=== PATIENT | female | born 1945 | race American Indian/Alaskan Native ===

== ENCOUNTER 2017-06-29 12:22 | Outpatient (CLI) | payer MEDICARE ==
--- NOTE | 2017-07-02 08:37 | Mammography Report ---
BILATERAL DIGITAL SCREENING MAMMOGRAM WITH CAD:06/29/17 CLINICAL: Baseline screening. FINDINGS: The breasts are heterogeneously dense, which may obscure small masses. Bilateral asymmetries require additional imaging.No architectural distortion or suspicious calcifications. IMPRESSION: Bilateral asymmetries requiring further workup. BI-RADS CATEGORY: 0 -- Needs Additional Imaging RECOMMENDATION: Recall for bilateral lateralmedial and spot magnification views and bilateral breast ultrasound if needed. ACR BI-RADS MAMMOGRAPHIC CODES: 0 = Needs additional imaging evaluation; 1 = Negative; 2 = Benign; 3 = Probably benign; 4 = Suspicious; 5 = Malignant; 6 = Known biopsy-proven malignancy COMMENT: 1. Dense breast tissue, i.e., adenosis, fibrocystic changes, etc., may obscure an underlying neoplasm. 2. Approximately 10% of cancers are not detected with mammography. 3. A negative mammography report should not delay biopsy if a clinically suspicious mass is present.
== END 2017-06-29 12:23 | disposition home or self-care (01) ==
LOC: SPVWC 12:22
PROVIDERS: ATTEND Hospitalist
DX: Z12.31 Encounter for screening mammogram for malignant neoplasm of breast (principal)
CPT/HCPCS: 77067; G0202

== ENCOUNTER 2018-04-28 06:50 | Inpatient (IN) | payer MEDICARE ==
--- NOTE | 2018-04-28 07:51 | XRay Report ---
FINAL REPORT EXAM: XR CHEST 1V AP HISTORY: Dyspnea TECHNIQUE: AP portable view(s) of the chest obtained. PRIORS: None. FINDINGS: No mediastinal shift. Cardiomegaly. Bilateral pleural effusions, bibasilar interstitial prominence and ill-defined right greater than left basilar opacities. No pneumothorax or acute skeletal finding. IMPRESSION: Pulmonary interstitial edema with right greater than left pleural effusions is most likely due to heart failure. Lower lung airspace disease can go undetected in this setting. PA and lateral chest radiographic follow-up is recommended.
[2018-04-28 08:15] LABS: Basophils % (Auto) 0.5 % (0.0-1.8); Hematocrit 25.6 % (30.3-42.9); Hemoglobin 8.2 gm/dl (10.1-14.3); Lymphocytes # (Auto) 1.6 K/mm3 (1.2-5.4); Lymphocytes % (Auto) 33.1 % (13.4-35.0); Mean Corpuscular HGB Conc 32 % (30-34); Mean Corpuscular Hemoglobin 28 pg (28-32); Mean Corpuscular Volume 87 fl (79-97); Monocytes # (Auto) 0.3 K/mm3 (0.0-0.8); Monocytes % (Auto) 6.6 % (0.0-7.3); Platelet Count 326 K/mm3 (140-440); Red Blood Count 2.95 M/mm3 (3.65-5.03); Red Cell Distribution Width 19.2 % (13.2-15.2)
[2018-04-28 08:23] LABS: INR 1.07 (0.87-1.13)
[2018-04-28 08:24] LABS: Partial Thromboplastin Time 27.1 Sec. (24.2-36.6)
[2018-04-28 08:32] LABS: Creatine Kinase MB 3.3 ng/mL (0.0-4.0)
[2018-04-28 08:35] LABS: BUN/Creatinine Ratio 16; Blood Urea Nitrogen 16 mg/dL (7-17); Calcium 8.8 mg/dL (8.4-10.2); Hemolysis Index 4
[2018-04-28 08:36] LABS: Alanine Aminotransferase 8 units/L (7-56); Albumin 3.6 g/dL (3.9-5)
[2018-04-28 08:58] LABS: Bilirubin,Direct < 0.2 mg/dL (0-0.2)
[2018-04-28] MEDS ORDERED: ASPIRIN PO ONE (09:11)
[2018-04-28] MEDS ORDERED: LASIX IV ONE (09:13)
--- NOTE | 2018-04-28 09:21 | Emergency Department Report ---
ED General Adult HPI - General Chief complaint: Extremity Injury, Lower Stated complaint: ROLA Time Seen by Provider: 04/28/18 07:24 Source: patient, EMS Mode of arrival: Stretcher Limitations: No Limitations - History of Present Illness Initial comments: Patient is a 72-year-old female from [facility] with no prior history of congestive heart failure. She visited her primary care physician once 2 weeks ago and had blood work drawn. She went there for swelling in her feet. She was given Lasix. However her swelling was unrelieved. This morning she had severe shortness of breath and EMS was notified. I do not have EMS records were direct report. However, I am told her pulse oximetry was in the 70s upon their arrival. She was placed on nasal cannula. At time of my encounter her pulse oximetry was covering at 90 or below on 2 L. Her FIO2 was increased by me. She was not in respiratory distress. She denied chest or abdominal pain per the questioning of family members. She does not speak Nepali at all. Family member does tell me that she had swelling in her legs which is largely not improved by the oral Lasix. She developed swelling of her face and experienced some swelling of her abdomen. She had no complaint of fever or chills. There has not been any productive cough or hemoptysis. She is not complaining of leg pain. I am told the primary care physician and sent blood work. The family is not aware of results. -: week(s) Consistency: constant (shortness of breath has become more constant) Improves with: none Worsens with: other (would obviously worsen with exertion) Associated Symptoms: denies other symptoms Treatments Prior to Arrival: other (Lasix per PMD) - Related Data Home Medications Medication Instructions Recorded Confirmed Last Taken Diclofenac [Jaden Wiley] 75 mg PO BID 04/28/18 04/28/18 Unknown Fluconazole [Diflucan TAB] 100 mg PO DAILY 04/28/18 04/28/18 Unknown Furosemide [Lasix TAB] 20 mg PO DAILY 04/28/18 04/28/18 Unknown Linaclotide [Linzess] 145 mcg PO DAILY 04/28/18 04/28/18 Unknown Lisinopril [Zestril TAB] 40 mg PO DAILY 04/28/18 04/28/18 Unknown Potassium Chloride 10 meq PO DAILY 04/28/18 04/28/18 Unknown Sitagliptin Phosphate [Januvia] 50 mg PO DAILY 04/28/18 04/28/18 Unknown amLODIPine [Norvasc] 10 mg PO DAILY 04/28/18 04/28/18 Unknown metFORMIN [Glucophage] 1,000 mg PO BID 04/28/18 04/28/18 Unknown Allergies Allergy/AdvReac Type Severity Reaction Status Date / Time No Known Allergies Allergy Unverified 04/28/18 09:19 ED Review of Systems ROS: Stated complaint: ROLA Other details as noted in HPI Constitutional: denies: chills, fever Eyes: denies: eye pain, eye discharge, vision change ENT: denies: ear pain, throat pain Respiratory: shortness of breath. denies: cough, wheezing Cardiovascular: edema. denies: chest pain, palpitations Endocrine: no symptoms reported Gastrointestinal: denies: abdominal pain, nausea, diarrhea Genitourinary: denies: urgency, dysuria, discharge Musculoskeletal: denies: back pain, joint swelling, arthralgia Skin: denies: rash, lesions Neurological: denies: headache, weakness, paresthesias Psychiatric: denies: anxiety, depression Hematological/Lymphatic: denies: easy bleeding, easy bruising ED Past Medical Hx - Past Medical History Previous Medical History?: Yes Hx Hypertension: Yes Hx Diabetes: Yes - Surgical History Past Surgical History?: No - Social History Smoking Status: Never Smoker Substance Use Type: None - Medications Home Medications: Home Medications Medication Instructions Recorded Confirmed Last Taken Type Marc Wiley [Jaden Wiley] 75 mg PO BID 04/28/18 04/28/18 Unknown History Fluconazole [Diflucan TAB] 100 mg PO DAILY 04/28/18 04/28/18 Unknown History Furosemide [Lasix TAB] 20 mg PO DAILY 04/28/18 04/28/18 Unknown History Linaclotide [Linzess] 145 mcg PO DAILY 04/28/18 04/28/18 Unknown History Lisinopril [Zestril TAB] 40 mg PO DAILY 04/28/18 04/28/18 Unknown History Potassium Chloride 10 meq PO DAILY 04/28/18 04/28/18 Unknown History Sitagliptin Phosphate [Januvia] 50 mg PO DAILY 04/28/18 04/28/18 Unknown History amLODIPine [Norvasc] 10 mg PO DAILY 08/12/18 08/12/18 Unknown History metFORMIN [Glucophage] 1,000 mg PO BID 04/28/18 04/28/18 Unknown History ED Physical Exam - General Limitations: Language Barrier General appearance: alert, in no apparent distress - Head Head exam: Present: atraumatic, normocephalic - Eye Eye exam: Present: normal appearance. Absent: scleral icterus - ENT ENT exam: Present: mucous membranes moist, other (periorbital edema) - Neck Neck exam: Present: normal inspection. Absent: tenderness, meningismus - Respiratory Respiratory exam: Present: rales (some scattered rales), other (distant breath sounds at the base). Absent: respiratory distress - Cardiovascular Cardiovascular Exam: Present: regular rate, normal rhythm. Absent: systolic murmur, diastolic murmur, rubs, gallop - GI/Abdominal GI/Abdominal exam: Present: soft, normal bowel sounds, other (I do not appreciate seven ascites). Absent: distended, tenderness, guarding, rebound, rigid - Extremities Exam Extremities exam: Present: other (bilateral leg edema) - Back Exam Back exam: Present: normal inspection. Absent: CVA tenderness (R), CVA tenderness (L) - Neurological Exam Neurological exam: Present: alert, oriented X3, CN II-XII intact. Absent: motor sensory deficit - Psychiatric Psychiatric exam: Present: normal affect, normal mood - Skin Skin exam: Present: warm, dry, intact, normal color. Absent: rash ED Course Vital Signs 04/28/18 07:00 Pulse Rate 106 H Respiratory 22 Rate Blood Pressure 121/61 O2 Sat by Pulse 70 L Oximetry - Reevaluation(s) Reevaluation #1: Patient remained clinically stable. She was given Lasix. She will be admitted by Dr. Buck to the hospitalist service for further care and evaluation of her new onset CHF. 04/28/18 09:35 Reevaluation #2: A d-dimer is pending. 04/28/18 09:39 ED Medical Decision Making - Lab Data Result diagrams: 04/28/18 07:48 04/28/18 07:48 - EKG Data -: EKG Interpreted by Me EKG shows normal: sinus rhythm, axis, intervals, QRS complexes, ST-T waves - EKG Data Interpretation: nonspecific ST-T wave raiza - Radiology Data Radiology results: report reviewed interpreted by me: Moderately large bilateral pleural effusions with CHF. Critical care attestation.: If time is entered above; I have spent that time in minutes in the direct care of this critically ill patient, excluding procedure time. 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
[2018-04-28] MEDS ORDERED: ZOFRAN IV PRN (10:00)
[2018-04-28] MEDS ORDERED: SODIUM CHLORIDE FLUSH SYRINGE 10 ML IV PRN (10:00)
[2018-04-28] MEDS ORDERED: PROVENTIL IH PRN (10:00)
[2018-04-28] MEDS ORDERED: D50W (25GM) Syringe IV PRN (10:00)
[2018-04-28] MEDS ORDERED: TYLENOL PO PRN (10:00)
[2018-04-28] MEDS ORDERED: NARCAN 0.4 MG/1 ML IV PRN (10:00)
[2018-04-28] MEDS ORDERED: LOVENOX SUB-Q SCH (10:00)
[2018-04-28] MEDS ORDERED: LASIX ONE (10:53)
[2018-04-28] MEDS ORDERED: LOVENOX SUB-Q ONE (10:53)
[2018-04-28] MEDS ORDERED: ZESTRIL ONE (10:54)
[2018-04-28] MEDS ORDERED: COREG ONE (10:54)
[2018-04-28] MEDS ORDERED: ASPIRIN ONE (10:54)
[2018-04-28] MEDS ORDERED: PEPCID IV ONE (10:54)
[2018-04-28] MEDS: SODIUM CHLORIDE FLUSH SYRINGE 10 ML IV SCH ×2 (10:59→22:55)
[2018-04-28] MEDS: COREG PO SCH ×2 (11:00→22:56)
[2018-04-28] MEDS: ZESTRIL PO SCH (11:00)
[2018-04-28] MEDS: LOVENOX SUB-Q SCH (11:02)
[2018-04-28] MEDS: PEPCID IV SCH ×2 (11:03→22:55)
[2018-04-28 11:49] LABS: Bacteria,Urine 2+ /HPF (Negative); Bilirubin,Urine NEG (Negative); Blood,Urine NEG (Negative); Color,Urine Yellow (Yellow); Granular Casts,Urine 3 /LPF; Hyaline Casts,Urine 4 /LPF; Mucus,Urine FEW /HPF; Urobilinogen,Urine < 2.0 mg/dL (<2.0)
[2018-04-28 12:19] LABS: Chol/HDL Ratio 3.18 %
[2018-04-28] MEDS: HumuLIN R SUB-Q SCH ×3 (13:23→22:53)
[2018-04-28] MEDS: DIFLUCAN PO SCH (13:23)
[2018-04-28] MEDS: TRADJENTA PO SCH (13:23)
[2018-04-28] MEDS: PERCOCET 5/325 PO PRN ×2 (13:23→18:10)
--- NOTE | 2018-04-28 13:39 | Consultation ---
History of Present Illness Consult date: 04/28/18 Consult reason: congestive heart failure Medications and Allergies Allergies Allergy/AdvReac Type Severity Reaction Status Date / Time No Known Allergies Allergy Unverified 04/28/18 09:19 Home Medications Medication Instructions Recorded Confirmed Last Taken Type Diclofenac Dr [Voltaren Dr] 75 mg PO BID 04/28/18 04/28/18 Unknown History Fluconazole [Diflucan TAB] 100 mg PO DAILY 04/28/18 04/28/18 Unknown History Furosemide [Lasix TAB] 20 mg PO DAILY 04/28/18 04/28/18 Unknown History Linaclotide [Linzess] 145 mcg PO DAILY 04/28/18 04/28/18 Unknown History Lisinopril [Zestril TAB] 40 mg PO DAILY 04/28/18 04/28/18 Unknown History Potassium Chloride 10 meq PO DAILY 04/28/18 04/28/18 Unknown History Sitagliptin Phosphate [Januvia] 50 mg PO DAILY 04/28/18 04/28/18 Unknown History amLODIPine [Norvasc] 10 mg PO DAILY 04/28/18 04/28/18 Unknown History metFORMIN [Glucophage] 1,000 mg PO BID 04/28/18 04/28/18 Unknown History Active Meds: Active Medications Acetaminophen (Tylenol) 650 mg PO Q4H PRN PRN Reason: Pain MILD(1-3)/Fever >100.5/MARINA Albuterol (Proventil) 2.5 mg IH Q4H PRN PRN Reason: Shortness Of Breath Carvedilol (Coreg) 3.125 mg PO BID [facility] Last Admin: 04/28/18 11:00 Dose: 3.125 mg Dextrose (D50w (25gm) Syringe) 50 ml IV PRN PRN PRN Reason: Hypoglycemia Enoxaparin Sodium (Lovenox) 40 mg SUB-Q QDAY@1000 [facility] Last Admin: 04/28/18 11:02 Dose: 40 mg Famotidine (Pepcid) 20 mg IV BID [facility] Last Admin: 04/28/18 11:03 Dose: 20 mg Fluconazole (Diflucan) 100 mg PO DAILY [facility] Last Admin: 04/28/18 13:23 Dose: 100 mg Furosemide (Lasix) 20 mg IV BID@0600,1800 [facility] Insulin Human Regular (Humulin R) 0 units SUB-Q [facility]; Protocol Last Admin: 04/28/18 13:23 Dose: Not Given Linagliptin (Tradjenta) 5 mg PO QDAY [facility] Last Admin: 04/28/18 13:23 Dose: 5 mg Lisinopril (Zestril) 40 mg PO DAILY [facility] Last Admin: 04/28/18 11:00 Dose: 40 mg Naloxone HCl (Narcan 0.4 Mg/1 Ml) 0.1 mg IV Q2MIN PRN PRN Reason: Res Rate </= 8 or 02 SAT < 92% Ondansetron HCl (Zofran) 4 mg IV Q8H PRN PRN Reason: Nausea And Vomiting Oxycodone/Acetaminophen (Percocet 5/325) 1 tab PO Q6H PRN PRN Reason: Pain, Moderate (4-6) Last Admin: 04/28/18 13:23 Dose: 1 tab Potassium Chloride (K-Dur) 20 meq PO QDAY [facility] Sodium Chloride (Sodium Chloride Flush Syringe 10 Ml) 10 ml IV BID [facility] Last Admin: 04/28/18 10:59 Dose: 10 ml Sodium Chloride (Sodium Chloride Flush Syringe 10 Ml) 10 ml IV PRN PRN PRN Reason: LINE FLUSH Physical Examination Vital Signs Pulse Resp BP Pulse Ox 106 H 22 121/61 70 L 04/28/18 07:00 04/28/18 07:00 04/28/18 07:00 04/28/18 07:00 Results 04/28/18 07:48 04/28/18 07:48 Cardiac Enzymes 04/28/18 04/28/18 Range/Units 07:48 07:48 AST 17 (5-40) units/L CK-MB (CK-2) 3.3 (0.0-4.0) ng/mL Coagulation 04/28/18 Range/Units 07:48 PT 14.5 (12.2-14.9) Sec. INR 1.07 (0.87-1.13) APTT 27.1 (24.2-36.6) Sec. Lipids 04/28/18 Range/Units 07:48 Triglycerides 135 (2-149) mg/dL Cholesterol 169 (50-199) mg/dL HDL Cholesterol 53 (40-59) mg/dL Cholesterol/HDL Ratio 3.18 % CBC 04/28/18 Range/Units 07:48 WBC 4.8 (4.5-11.0) K/mm3 RBC 2.95 L (3.65-5.03) M/mm3 Hgb 8.2 L (10.1-14.3) gm/dl Hct 25.6 L (30.3-42.9) % Plt Count 326 (140-440) K/mm3 Lymph # 1.6 (1.2-5.4) K/mm3 [place] # 0.3 (0.0-0.8) K/mm3 Eos # 0.0 (0.0-0.4) K/mm3 Baso # 0.0 (0.0-0.1) K/mm3 Comprehensive Metabolic Panel 04/28/18 04/28/18 Range/Units 07:48 07:48 Sodium 139 (137-145) mmol/L Potassium 5.1 H (3.6-5.0) mmol/L Chloride 104.8 (98-107) mmol/L Carbon Dioxide 20 L (22-30) mmol/L BUN 16 (7-17) mg/dL Creatinine 1.0 (0.7-1.2) mg/dL Glucose 173 H (65-100) mg/dL Calcium 8.8 (8.4-10.2) mg/dL Direct Bilirubin < 0.2 (0-0.2) mg/dL Indirect Bilirubin 0.0 mg/dL AST 17 (5-40) units/L ALT 8 (7-56) units/L Alkaline Phosphatase 61 (35-129) units/L Total Protein 7.3 (6.3-8.2) g/dL Albumin 3.6 L (3.9-5) g/dL Assessment and Plan Patient with biventricular heart failure,new onset with hx. of long standing HTN ,diabetes. has underlying anemia,agree with diuresis,continue Zestril,started on carvedilo. Check echo,consider ischemic evaluation once heart failure improves.
--- NOTE | 2018-04-28 14:19 | History and Physical Report ---
History of Present Illness Date of examination: 04/28/18 Date of admission: 04/28/18 09:13 Chief complaint: Shortness of breath swelling History of present illness: It is a 72-year-old with a history of hypertension and diabetes presents with a two-week complaint of increasing lower extremity swelling that progressively got worse to come up the thigh and back. Patient denied any chest pain however shortness of breath dyspnea on exertion and orthopnea were her main complaints. Patient did go to her primary care physician and started on by mouth Lasix. At that time symptoms never improved including lower extremity edema and ascites. At present patient is [place] but has family at bedside able to express concerns and answering questions. At any time patient did not have any chest pain or nausea or vomiting. Patient denies recent cardiac workup or hospitalization. With the shortness of breath has come fatigue. No alleviating symptoms size rest and motion is the aggravating symptom. Past History Past Medical History: anemia, diabetes, hypertension. denies: acute RI, atrial fib, arrhythmia, arthritis, CAD, cancer, COPD, dialysis, DVT, ESRD, GERD, heart failure, hepatitis, HIV/AIDS, hyperthyroidism, hyperlipidemia, hypothyroidism, liver disease, migraines, pulmonary embolism, renal failure, seizures, stroke, sarcoidosis Past Surgical History: No surgical history, Other (no past surgical history but limited secondary to translation.) Social history: single, lives with family, full code. denies: smoking, alcohol abuse, prescription drug abuse, IV drug use Family history: diabetes, hypertension Medications and Allergies Allergies Allergy/AdvReac Type Severity Reaction Status Date / Time No Known Allergies Allergy Unverified 04/28/18 09:19 Home Medications Medication Instructions Recorded Confirmed Last Taken Type Diclofenac [Jaden Wiley] 75 mg PO BID 04/28/18 04/28/18 Unknown History Fluconazole [Diflucan TAB] 100 mg PO DAILY 04/28/18 04/28/18 Unknown History Furosemide [Lasix TAB] 20 mg PO DAILY 04/28/18 04/28/18 Unknown History Linaclotide [Linzess] 145 mcg PO DAILY 04/28/18 04/28/18 Unknown History Lisinopril [Zestril TAB] 40 mg PO DAILY 04/28/18 04/28/18 Unknown History Potassium Chloride 10 meq PO DAILY 04/28/18 04/28/18 Unknown History Sitagliptin Phosphate [Januvia] 50 mg PO DAILY 04/28/18 04/28/18 Unknown History amLODIPine [Norvasc] 10 mg PO DAILY 04/28/18 04/28/18 Unknown History metFORMIN [Glucophage] 1,000 mg PO BID 04/28/18 04/28/18 Unknown History Active Meds: Active Medications Acetaminophen (Tylenol) 650 mg PO Q4H PRN PRN Reason: Pain MILD(1-3)/Fever >100.5/MARINA Albuterol (Proventil) 2.5 mg IH Q4H PRN PRN Reason: Shortness Of Breath Carvedilol (Coreg) 3.125 mg PO BID [facility] Last Admin: 04/28/18 11:00 Dose: 3.125 mg Dextrose (D50w (25gm) Syringe) 50 ml IV PRN PRN PRN Reason: Hypoglycemia Enoxaparin Sodium (Lovenox) 40 mg SUB-Q QDAY@1000 [facility] Last Admin: 04/28/18 11:02 Dose: 40 mg Famotidine (Pepcid) 20 mg IV BID [facility] Last Admin: 04/28/18 11:03 Dose: 20 mg Fluconazole (Diflucan) 100 mg PO DAILY [facility] Last Admin: 04/28/18 13:23 Dose: 100 mg Furosemide (Lasix) 20 mg IV BID@0600,1800 [facility] Insulin Human Regular (Humulin R) 0 units SUB-Q [facility]; Protocol Last Admin: 04/28/18 13:23 Dose: Not Given Linagliptin (Tradjenta) 5 mg PO QDAY [facility] Last Admin: 04/28/18 13:23 Dose: 5 mg Lisinopril (Zestril) 40 mg PO DAILY [facility] Last Admin: 04/28/18 11:00 Dose: 40 mg Naloxone HCl (Narcan 0.4 Mg/1 Ml) 0.1 mg IV Q2MIN PRN PRN Reason: Res Rate </= 8 or 02 SAT < 92% Ondansetron HCl (Zofran) 4 mg IV Q8H PRN PRN Reason: Nausea And Vomiting Oxycodone/Acetaminophen (Percocet 5/325) 1 tab PO Q6H PRN PRN Reason: Pain, Moderate (4-6) Last Admin: 04/28/18 13:23 Dose: 1 tab Potassium Chloride (K-Dur) 20 meq PO QDAY [facility] Sodium Chloride (Sodium Chloride Flush Syringe 10 Ml) 10 ml IV BID [facility] Last Admin: 04/28/18 10:59 Dose: 10 ml Sodium Chloride (Sodium Chloride Flush Syringe 10 Ml) 10 ml IV PRN PRN PRN Reason: LINE FLUSH Review of Systems Constitutional: weight gain, fatigue, weakness, no weight loss, no fever, no chills, no sweats, no night sweats, no anorexia, no malaise, no lethargy, no chronic headaches, no poor appetite Ears, nose, mouth and throat: no ear pain, no tinnitis, no nose pain, no nasal discharge, no bleeding gums, no mouth pain, no hoarseness, no sore throat, no headache, no vertigo Cardiovascular: orthopnea, edema, shortness of breath, dyspnea on exertion, leg edema, decreased exercise tolerance, no chest pain, no palpitations, no rapid/ irregular heart beat, no syncope, no lightheadedness, no paroxysmal nocturnal dyspnea, no claudication, no phlebitis, no high blood pressure Respiratory: cough, no cough with sputum, no excessive sputum, no hemoptysis, no shortness of breath, no dyspnea on exertion, no congestion, no wheezing, no pleurisy, no pain, no snoring, no respiratory infections, no home oxygen Gastrointestinal: no abdominal pain, no diarrhea, no melena, no hematochezia, no early satiety, no heartburn, no jaundice, no early satiety, no lactose intolerance Musculoskeletal: neck stiffness, morning stiffness, muscle weakness, no arm numbness/tingling, no low back pain, no leg numbness/tingling, no hot joints, no muscle cramps, no limitation of motion, no fractures, no loss of height, no arthritis Integumentary: no deferred, no redness, no jaundice, no growths, no darkening of skin, no acne, no hirsutism Neurological: no weakness, no numbness, no syncope, no migraines, no aphasia, no change in mentation, no loss of vision Psychiatric: no change in sleep habits, no sleep disturbances, no hypersomnia, no suicidal ideation, no depression, no hopelessness, no difficulties concentrating, no mood swings Endocrine: no cold intolerance, no polyphagia, no excessive thirst, no polyuria , no excessive sweating, no increase in ring/shoe/hat size, no proptosis, no palpatations Hematologic/Lymphatic: no easy bruising, no lymphedema Allergic/Immunologic: no urticaria, no allergic rhinitis, no persistent infections, no gluten intolerance, no seasonal allergies Exam - Constitutional Vitals: Temp Pulse Resp BP Pulse Ox 109 H 23 127/75 93 04/28/18 11:30 04/28/18 11:30 04/28/18 11:30 04/28/18 12:55 General appearance: Present: no acute distress - EENT Eyes: Present: PERRL ENT: hearing intact, clear oral mucosa - Neck Neck: Present: supple, normal ROM, other (JVD). Absent: enlarged thyroid, masses or JVD, cervical LAD, carotid bruits - Respiratory Respiratory effort: normal Respiratory: bilateral: diminished, rhonchi - Cardiovascular Rhythm: regular Heart Sounds: Present: S1 & S2 - Extremities Extremities: no ischemia, pulses intact, pulses symmetrical, No edema, normal temperature, normal color Extremity abnormal: other (patient has a +2 pitting edema as well as ascites.) Peripheral Pulses: within normal limits - Abdominal General gastrointestinal: Present: soft, non-tender, non-distended, other ( ascites bilaterally back and abdomen. Edema runs up the flank.) - Integumentary Integumentary: Present: clear, warm, dry - Musculoskeletal Musculoskeletal: strength equal bilaterally, generalized weakness - Psychiatric Psychiatric: appropriate mood/affect, intact judgment & insight, cooperative - Neurologic Neurologic: CNII-XII intact, no focal deficits, moves all extremities Results - Labs CBC & Chem 7: 04/28/18 07:48 04/28/18 07:48 Labs: Laboratory Last Values WBC 4.8 K/mm3 (4.5-11.0) 04/28/18 07:48 RBC 2.95 M/mm3 (3.65-5.03) L 04/28/18 07:48 Hgb 8.2 gm/dl (10.1-14.3) L 04/28/18 07:48 Hct 25.6 % (30.3-42.9) L 04/28/18 07:48 MCV 87 fl (79-97) 04/28/18 07:48 MCH 28 pg (28-32) 04/28/18 07:48 MCHC 32 % (30-34) 04/28/18 07:48 RDW 19.2 % (13.2-15.2) H 04/28/18 07:48 Plt Count 326 K/mm3 (140-440) 04/28/18 07:48 Lymph % (Auto) 33.1 % (13.4-35.0) 04/28/18 07:48 [place] % (Auto) 6.6 % (0.0-7.3) 04/28/18 07:48 Eos % (Auto) 1.0 % (0.0-4.3) 04/28/18 07:48 Baso % (Auto) 0.5 % (0.0-1.8) 04/28/18 07:48 Lymph # 1.6 K/mm3 (1.2-5.4) 04/28/18 07:48 [place] # 0.3 K/mm3 (0.0-0.8) 04/28/18 07:48 Eos # 0.0 K/mm3 (0.0-0.4) 04/28/18 07:48 Baso # 0.0 K/mm3 (0.0-0.1) 04/28/18 07:48 Seg Neutrophils % 58.8 % (40.0-70.0) 04/28/18 07:48 Seg Neutrophils # 2.8 K/mm3 (1.8-7.7) 04/28/18 07:48 PT 14.5 Sec. (12.2-14.9) 04/28/18 07:48 INR 1.07 (0.87-1.13) 04/28/18 07:48 APTT 27.1 Sec. (24.2-36.6) 04/28/18 07:48 D-Dimer 1370.91 ng/mlDDU (0-234) H 04/28/18 07:48 POC ABG pH 7.346 (7.35-7.45) L 04/28/18 09:40 POC ABG pCO2 43.8 (35-45) 04/28/18 09:40 POC ABG pO2 68 (80-105) L 04/28/18 09:40 POC ABG HCO3 23.9 04/28/18 09:40 POC ABG Total CO2 25 04/28/18 09:40 POC ABG O2 Sat 92 04/28/18 09:40 POC ABG Base Excess -2 04/28/18 09:40 FiO2 63 % 04/28/18 09:40 Sodium 139 mmol/L (137-145) 04/28/18 07:48 Potassium 5.1 mmol/L (3.6-5.0) H 04/28/18 07:48 Chloride 104.8 mmol/L (98-107) 04/28/18 07:48 Carbon Dioxide 20 mmol/L (22-30) L 04/28/18 07:48 Anion Gap 19 mmol/L 04/28/18 07:48 BUN 16 mg/dL (7-17) 04/28/18 07:48 Creatinine 1.0 mg/dL (0.7-1.2) 04/28/18 07:48 Estimated GFR > 60 ml/min 04/28/18 07:48 BUN/Creatinine Ratio 16 % 04/28/18 07:48 Glucose 173 mg/dL (65-100) H 04/28/18 07:48 POC Glucose 164 (70-105) H 04/28/18 12:20 Hemoglobin A1c 8.6 % (4-6) H 04/28/18 07:48 Lactic Acid 0.80 mmol/L (0.7-2.0) 04/28/18 07:48 Calcium 8.8 mg/dL (8.4-10.2) 04/28/18 07:48 Magnesium 2.00 mg/dL (1.7-2.3) 04/28/18 07:48 Total Bilirubin 0.20 mg/dL (0.1-1.2) 04/28/18 07:48 Direct Bilirubin < 0.2 mg/dL (0-0.2) 04/28/18 07:48 Indirect Bilirubin 0.0 mg/dL 04/28/18 07:48 AST 17 units/L (5-40) 04/28/18 07:48 ALT 8 units/L (7-56) 04/28/18 07:48 Alkaline Phosphatase 61 units/L (35-129) 04/28/18 07:48 Total Creatine Kinase 91 units/L (30-135) 04/28/18 07:48 CK-MB (CK-2) 3.3 ng/mL (0.0-4.0) 04/28/18 07:48 CK-MB (CK-2) Rel Index 3.6 (0-4) 04/28/18 07:48 Troponin T < 0.010 ng/mL (0.00-0.029) 04/28/18 07:48 NT-Pro-B Natriuret Pep 852.1 pg/mL (0-900) 04/28/18 07:48 Total Protein 7.3 g/dL (6.3-8.2) 04/28/18 07:48 Albumin 3.6 g/dL (3.9-5) L 04/28/18 07:48 Albumin/Globulin Ratio 1.0 % 04/28/18 07:48 Triglycerides 135 mg/dL (2-149) 04/28/18 07:48 Cholesterol 169 mg/dL (50-199) 04/28/18 07:48 LDL Cholesterol Direct 102 mg/dL (50-130) 04/28/18 07:48 HDL Cholesterol 53 mg/dL (40-59) 04/28/18 07:48 Cholesterol/HDL Ratio 3.18 % 04/28/18 07:48 Urine Color Yellow (Yellow) 04/28/18 11:10 Urine Turbidity Hazy (Clear) 04/28/18 11:10 Urine pH 5.0 (5.0-7.0) 04/28/18 11:10 Ur Specific [place] 1.017 (1.003-1.030) 04/28/18 11:10 Urine Protein 30 mg/dl mg/dL (Negative) 04/28/18 11:10 Urine Glucose (UA) 50 mg/dL (Negative) 04/28/18 11:10 Urine Ketones Tr mg/dL (Negative) 04/28/18 11:10 Urine Blood Neg (Negative) 04/28/18 11:10 Urine Nitrite Neg (Negative) 04/28/18 11:10 Urine Bilirubin Neg (Negative) 04/28/18 11:10 Urine Urobilinogen < 2.0 mg/dL (<2.0) 04/28/18 11:10 Ur Leukocyte Esterase Neg (Negative) 04/28/18 11:10 Urine WBC (Auto) 1.0 /HPF (0.0-6.0) 04/28/18 11:10 Urine RBC (Auto) 2.0 /HPF (0.0-6.0) 04/28/18 11:10 U Epithel Cells (Auto) < 1.0 /HPF (0-13.0) 04/28/18 11:10 Urine Bacteria (Auto) 2+ /HPF (Negative) 04/28/18 11:10 Hyaline Casts 4 /LPF 04/28/18 11:10 Granular Casts 3 /LPF 04/28/18 11:10 Urine Mucus Few /HPF 04/28/18 11:10 Blood Type O POSITIVE 04/28/18 07:48 Antibody Screen Negative 04/28/18 07:48 - Imaging and Cardiology EKG: image reviewed Chest x-ray: image reviewed Assessment and Plan Advance Directives: Yes VTE prophylaxis?: Chemical Plan of care discussed with patient/family: Yes - Patient Problems (1) Congestive heart failure Current Visit: Yes Status: Acute Plan to address problem: has most likely systolic congestive heart failure patient chest x-ray reviewed has significant lower extremity edema ascites and pleural effusions on chest x- ray consistent with failure. Patient has no JVD but does have orthopnea PND no chest pain. Will admit patient again rule out for RI. Will obtain echocardiogram to establish ejection fraction will place patient on EDDIE inhibitor and Coreg. Continue aggressive diuresis with Lasix. We'll hold potassium this time because patient has hyperkalemia at this time. (2) Hyperkalemia Current Visit: Yes Status: Acute Plan to address problem: We'll hold replacement potassium for today and restart potassium tomorrow because it was high today. (3) Hypoxia Current Visit: Yes Status: Acute Plan to address problem: Apraxia secondary to congestive heart failure. May want to consider CT angiogram on patient is stable but highly unlikely for pulmonary embolism. Patient did have elevated d-dimer noted in the lab. Not considerably high. But may add this throughout the workup. (4) Pleural effusion, bilateral Current Visit: Yes Status: Acute Plan to address problem: The due to congestive heart failure established ejection fraction placed on diuretic Coreg EDDIE inhibitor (5) Pulmonary edema Current Visit: Yes Status: Acute Qualifiers: Chronicity: acute Qualified Code(s): J81.0 - Acute pulmonary edema (6) Type 2 diabetes mellitus Current Visit: Yes Status: Acute Qualifiers: Diabetes mellitus watermaster insulin use: without watermaster use Diabetes mellitus complication status: without complication Qualified Code(s): E11.9 - Type 2 diabetes mellitus without complications Plan to address problem: At present diabetes appears to be fairly well controlled. Will start patient on sliding scale insulin and Accu-Chek every before meals and daily at bedtime.
[2018-04-28] MEDS: LASIX IV SCH (18:10)
[2018-04-28] MEDS ORDERED: APRESOLINE IV PRN (21:48)
--- NOTE | 2018-04-28 23:13 | Consultation ---
HISTORY OF PRESENT ILLNESS: Skhsypo[age][id number][age]uk-old female who lives with her daughter, [place] last 8 [place], being followed by Dr. Marta Craft with history of hypertension and diabetes mellitus of 8 years' duration and no previous cardiac history, is having shortness of breath. She could not lay down. She has to sleep propped up and could not get up and walk much because of leg swelling of few weeks' duration, it is getting worse. Hence, the patient was brought to the Emergency Room and was evaluated by the ER physician and noted to have pulse oximetry in 70s. She was given nasal cannula and pulse oximetry went up to 90% or so. She was not in respiratory distress. She is having increasing leg swelling and abdominal swelling of few days' duration. She cannot able to ambulate as much at this point. The patient is being followed by primary care physician on a regular basis. History is obtained through her daughter who is nurse licensed practical. The patient herself cannot speak [place]. PAST MEDICAL HISTORY: Significant for history of longstanding hypertension and longstanding diabetes mellitus. The patient is also taking Lasix. MEDICATIONS: Patient's medications included Voltaren 75 mg b.i.d., Diflucan 100 mg daily, furosemide 20 mg daily, Zestril 40 mg daily, amlodipine 10 mg daily, KCl 10 mEq daily in addition to Januvia 50 mg daily and Glucophage 100 mg twice a day. SOCIAL HISTORY: Does not smoke or use alcohol. Lives with her daughter. REVIEW OF SYSTEMS: Denied any fever, coughing. Her main complaint is difficulty breathing at night and also in the daytime leg swelling and abdominal swelling. No history of pulmonary emboli or DVT. She has history of constipation, but no history of GI bleed. She has no back pain. No skin lesions, no skin rash. No history of anxiety or depression. PHYSICAL EXAMINATION: GENERAL: The patient is in mild respiratory distress. HEENT: Unremarkable. Conjunctivae pale. Sclerae anicteric. NECK: Supple. Difficult to evaluate for JVD. HEART: Irregular, slightly tachycardic, 2/6 systolic murmur noted. LUNGS: Decreased breath sounds noted. ABDOMEN: Benign. EXTREMITIES: 1+ edema noted. LABORATORY DATA: Showed hemoglobin of 8.2 g/dL with potassium of 5.1, BUN of 16, creatinine of 1.0 and a glucose of 170. Chest x-ray was interpreted as showing pulmonary interstitial edema of the right greater than left, pleural effusions. EKG is not available for review at this point. FINAL IMPRESSION: 1. Biventricular congestive heart failure of few weeks' duration, significant, asymptomatic. Agree with diuresis. The patient already on Zestril and I agree with adding carvedilol. 2. Longstanding hypertension. 3. Diabetes mellitus, adult onset. 4. Anemia, etiology of which is not clear. Lipid profile showed HDL of 53 with LDL of 102, total cholesterol of 169. At this time, agree with the diuresis. Monitor blood pressure and blood sugars. We will get an echocardiogram for LV and RV function. We will consider ischemic evaluation once her heart failure gets better. Thank you very much Dr. Buck for letting us participate in your patient's care. JOB# [id number] NOAH/VARGAS
[2018-04-29 06:15] LABS: Basophils % (Auto) 0.2 % (0.0-1.8); Eosinophils # (Auto) 0.1 K/mm3 (0.0-0.4); Eosinophils % (Auto) 2.6 % (0.0-4.3); Hematocrit 25.3 % (30.3-42.9); Hemoglobin 8.3 gm/dl (10.1-14.3); Lymphocytes # (Auto) 1.8 K/mm3 (1.2-5.4); Lymphocytes % (Auto) 39.7 % (13.4-35.0); Mean Corpuscular HGB Conc 33 % (30-34); Mean Corpuscular Hemoglobin 28 pg (28-32); Mean Corpuscular Volume 84 fl (79-97); Monocytes # (Auto) 0.4 K/mm3 (0.0-0.8); Monocytes % (Auto) 8.1 % (0.0-7.3); Platelet Count 331 K/mm3 (140-440); Red Blood Count 3.02 M/mm3 (3.65-5.03); Red Cell Distribution Width 18.3 % (13.2-15.2)
[2018-04-29] MEDS: LASIX IV SCH ×3 (06:15→17:24)
[2018-04-29 06:42] LABS: BUN/Creatinine Ratio 16; Blood Urea Nitrogen 13 mg/dL (7-17); Hemolysis Index 0
[2018-04-29] MEDS: HumuLIN R SUB-Q SCH ×4 (07:59→22:00)
[2018-04-29] MEDS ORDERED: NON-FORMULARY (Sitagliptin Phosphate [Januvia] 50 MG) PO SCH (10:00)
[2018-04-29] MEDS ORDERED: LASIX IV SCH (10:18)
--- NOTE | 2018-04-29 10:26 | Progress Note ---
Assessment and Plan - Thomas Pleural effusion with R>L Diuretic BNP was normal at 852.1 ECHO showed LVEF of 50-55%. no evidence of heart failure - Thomas Pneimonia - Per CTA Gropund glass infiltrated suspecia for PCP pneimonia Will get CD4 level Pul consult - Hyperkalemia - corrected - Hypoxia CTA showe no PE but patchy infiltrate dn romy glass appearnace with thomas pleural effucion - Type 2 diabetes mellitus At present diabetes appears to be fairly well controlled. Will start patient on sliding scale insulin and Accu-Chek every before meals and daily at bedtime. - DVT PPx with lovenox Subjective Date of service: 04/29/18 Principal diagnosis: shortness of breath on slightexertion, thomas pleual effusion and pneumona Interval history: Still having shortness of breath. No chest pain. No fever Objective - Constitutional Vitals: Vital Signs - 12hr 04/28/18 04/28/18 04/29/18 22:56 23:05 01:12 Temperature 98.0 F Pulse Rate 108 H 103 H Respiratory 20 Rate Blood Pressure 121/62 130/65 Blood Pressure [Left] O2 Sat by Pulse Oximetry 04/29/18 04/29/18 04/29/18 05:32 07:39 08:00 Temperature 98.3 F 98.4 F Pulse Rate 98 H 98 H 100 H Respiratory 20 Rate Blood Pressure 131/66 127/70 Blood Pressure 127/70 [Left] O2 Sat by Pulse 95 100 100 Oximetry 04/29/18 08:14 Temperature Pulse Rate Respiratory Rate Blood Pressure Blood Pressure [Left] O2 Sat by Pulse 100 Oximetry General appearance: Present: no acute distress, well-nourished - EENT Eyes: PERRL, EOM intact ENT: hearing intact, clear oral mucosa - Neck Neck: supple, normal ROM - Respiratory Respiratory effort: normal Respiratory: bilateral: diminished - Breasts Breasts: normal - Cardiovascular Rhythm: regular Heart Sounds: Present: S1 & S2. Absent: gallop, rub Extremities: pulses intact, No edema, normal color, Full ROM - Gastrointestinal General gastrointestinal: Present: soft, non-tender, non-distended, normal bowel sounds - Integumentary Integumentary: clear, warm, dry - Musculoskeletal Musculoskeletal: 1, strength equal bilaterally - Neurologic Neurologic: moves all extremities - Psychiatric Psychiatric: memory intact, appropriate mood/affect, intact judgment & insight - Labs CBC & Chem 7: 04/29/18 05:34 04/29/18 05:34 Labs: Abnormal lab results 04/28/18 04/28/18 04/28/18 Range/Units 07:48 12:20 17:05 RBC (3.65-5.03) M/mm3 Hgb (10.1-14.3) gm/dl Hct (30.3-42.9) % RDW (13.2-15.2) % Lymph % (Auto) (13.4-35.0) % [place] % (Auto) (0.0-7.3) % Glucose (65-100) mg/dL POC Glucose 164 H 226 H (70-105) Hemoglobin A1c 8.6 H (4-6) % 04/28/18 04/29/18 04/29/18 Range/Units 21:17 05:34 05:34 RBC 3.02 L (3.65-5.03) M/mm3 Hgb 8.3 L (10.1-14.3) gm/dl Hct 25.3 L (30.3-42.9) % RDW 18.3 H (13.2-15.2) % Lymph % (Auto) 39.7 H (13.4-35.0) % [place] % (Auto) 8.1 H (0.0-7.3) % Glucose 109 H (65-100) mg/dL POC Glucose 122 H (70-105) Hemoglobin A1c (4-6) % 04/29/18 Range/Units 07:09 RBC (3.65-5.03) M/mm3 Hgb (10.1-14.3) gm/dl Hct (30.3-42.9) % RDW (13.2-15.2) % Lymph % (Auto) (13.4-35.0) % [place] % (Auto) (0.0-7.3) % Glucose (65-100) mg/dL POC Glucose 120 H (70-105) Hemoglobin A1c (4-6) %
[2018-04-29] MEDS: ZESTRIL PO SCH (10:37)
[2018-04-29] MEDS: DIFLUCAN PO SCH (10:37)
[2018-04-29] MEDS: PEPCID IV SCH ×2 (10:38→21:30)
[2018-04-29] MEDS: COREG PO SCH ×2 (10:38→21:30)
[2018-04-29] MEDS: K-DUR PO SCH (10:38)
[2018-04-29] MEDS: TRADJENTA PO SCH (10:38)
[2018-04-29] MEDS: LOVENOX SUB-Q SCH (10:39)
[2018-04-29] MEDS: SODIUM CHLORIDE FLUSH SYRINGE 10 ML IV SCH ×2 (10:39→21:30)
--- NOTE | 2018-04-29 14:00 | Progress Note ---
Assessment and Plan Increase lasix to 40mg IV BID. Await echo findings. The patient has been seen in conjunction with Dr. Frias who agrees with the assessment and plan of care. - Patient Problems (1) Acute heart failure Current Visit: Yes Status: Acute (2) Hypertension Current Visit: Yes Status: Chronic (3) Diabetes Current Visit: Yes Status: Chronic (4) Anemia Current Visit: Yes Status: Acute Subjective Date of service: 04/29/18 Principal diagnosis: acute heart failure Interval history: The patient is resting in bed. C/o shortness of breath. Sinus tachycardia on the monitor with HR 100s. Objective Last Vital Signs Temp 98.9 F 04/29/18 12:00 Pulse 106 H 04/29/18 12:08 Resp 18 04/29/18 12:08 BP 125/51 04/29/18 12:00 Pulse Ox 94 04/29/18 12:08 - Physical Examination General: No Apparent Distress HEENT: Positive: Normocephaly, Mucus Membranes Moist Neck: Positive: neck supple, trachea midline Cardiac: Positive: Regular Rhythm, S1/S2, Tachycardia Lungs: Positive: clear to auscultation Neuro: Positive: Grossly Intact Abdomen: Positive: Soft, Active Bowel Sounds. Negative: Tender Skin: Positive: Clear. Negative: Rash Extremities: Present: +1 Edema (bilateral LEs, R > L) - Labs and Meds CBC 04/29/18 Range/Units 05:34 WBC 4.5 (4.5-11.0) K/mm3 RBC 3.02 L (3.65-5.03) M/mm3 Hgb 8.3 L (10.1-14.3) gm/dl Hct 25.3 L (30.3-42.9) % Plt Count 331 (140-440) K/mm3 Lymph # 1.8 (1.2-5.4) K/mm3 [place] # 0.4 (0.0-0.8) K/mm3 Eos # 0.1 (0.0-0.4) K/mm3 Baso # 0.0 (0.0-0.1) K/mm3 Comprehensive Metabolic Panel 04/29/18 Range/Units 05:34 Sodium 140 (137-145) mmol/L Potassium 4.7 (3.6-5.0) mmol/L Chloride 100.8 (98-107) mmol/L Carbon Dioxide 25 (22-30) mmol/L BUN 13 (7-17) mg/dL Creatinine 0.8 (0.7-1.2) mg/dL Glucose 109 H (65-100) mg/dL Calcium 9.0 (8.4-10.2) mg/dL - Imaging and Cardiology EKG: image reviewed Echo: pending - Telemetry EKG Rhythm: Sinus Tachycardia
--- NOTE | 2018-04-29 20:07 | Cat Scan Report ---
FINAL REPORT EXAM: CT ANGIO CHEST HISTORY: elevated D- Dimer TECHNIQUE: High-resolution helical axial images were obtained of the chest during intravenous administration of iodinated contrast. Images are reconstructed in the sagittal and coronal planes. PRIORS: None. FINDINGS: There is no evidence of pulmonary embolism, the pulmonary arteries opacify normally. The heart is mildly to moderately enlarged. The thoracic aorta is non aneurysmal and there is no evidence of dissection. There are scattered right upper lobe patchy ground-glass infiltrates. There is a large right and medium sized left pleural effusions with associated bibasilar compressive atelectasis. Images through the upper abdomen show 9 mm cyst in the dome of the liver. The bones are unremarkable. IMPRESSION: 1. No evidence of pulmonary embolism. 2. Scattered upper lobe patchy ground-glass infiltrates most likely representing pneumonia. 3. Bilateral pleural effusions, large on the right and medium in size on the left. Associated bibasilar compressive atelectasis.
[2018-04-29] MEDS ORDERED: D50W (25GM) Syringe IV PRN (21:22)
[2018-04-29] MEDS: LEVAQUIN 500MG/100ML 500 MG/100 ML BAG IV SCH (21:33)
[2018-04-29] MEDS: SOLU-Medrol IV SCH (21:33)
[2018-04-29] MEDS: HumaLOG SUB-Q SCH (22:50)
[2018-04-30] MEDS: LASIX IV SCH (05:41)
[2018-04-30 06:29] LABS: Calcium 9.1 mg/dL (8.4-10.2)
[2018-04-30] MEDS: COREG PO SCH (09:22)
[2018-04-30] MEDS: LOVENOX SUB-Q SCH (09:23)
[2018-04-30] MEDS: TRADJENTA PO SCH (09:23)
[2018-04-30] MEDS: PEPCID IV SCH (09:23)
[2018-04-30] MEDS: DIFLUCAN PO SCH (09:23)
[2018-04-30] MEDS: SOLU-Medrol IV SCH (09:23)
[2018-04-30] MEDS: ZESTRIL PO SCH (09:23)
[2018-04-30] MEDS: K-DUR PO SCH (09:23)
[2018-04-30] MEDS: LEVAQUIN 500MG/100ML 500 MG/100 ML BAG IV SCH (09:24)
[2018-04-30] MEDS: HumaLOG SUB-Q SCH ×4 (09:24→22:36)
[2018-04-30] MEDS: SODIUM CHLORIDE FLUSH SYRINGE 10 ML IV SCH ×2 (10:26→22:36)
--- NOTE | 2018-04-30 10:33 | Progress Note ---
Assessment and Plan Assessment: Acute diastolic heart failure, EF 50-55% Bilateral pleural effusions ?Pneumonia/ground glass opacities on chest CTA Hypertension Diabetes Anemia Plan: Will change lasix to PO and continue close monitoring of volume status and renal indices. D/c coreg and initiate metoprolol 25mg BID for better HR control. The patient has been seen in conjunction with Dr. Polk who agrees with the assessment and plan of care. - Patient Problems (1) Acute heart failure Current Visit: Yes Status: Acute (2) Hypertension Current Visit: Yes Status: Chronic (3) Diabetes Current Visit: Yes Status: Chronic (4) Anemia Current Visit: Yes Status: Acute Subjective Date of service: 04/30/18 Principal diagnosis: acute diastolic heart failure Interval history: The patient is resting in bed. No acute distress noted. Sinus tach on the monitor with HR 100s-110s. Objective Last Vital Signs Temp 98.6 F 04/30/18 00:55 Pulse 109 H 04/30/18 09:23 Resp 22 04/30/18 00:55 BP 132/70 04/30/18 09:23 Pulse Ox 94 04/30/18 10:00 - Physical Examination General: No Apparent Distress HEENT: Positive: Normocephaly, Mucus Membranes Moist Neck: Positive: neck supple, trachea midline Cardiac: Positive: Regular Rhythm, S1/S2, Tachycardia Lungs: Positive: clear to auscultation Neuro: Positive: Grossly Intact Abdomen: Positive: Soft, Active Bowel Sounds. Negative: Tender Skin: Positive: Clear. Negative: Rash Extremities: Present: edema (trace-bilateral lower legs) - Labs and Meds Comprehensive Metabolic Panel 04/30/18 Range/Units 05:40 Sodium 138 (137-145) mmol/L Potassium 5.4 H (3.6-5.0) mmol/L Chloride 98.0 (98-107) mmol/L Carbon Dioxide 24 (22-30) mmol/L BUN 20 H (7-17) mg/dL Creatinine 1.2 (0.7-1.2) mg/dL Glucose 189 H (65-100) mg/dL Calcium 9.1 (8.4-10.2) mg/dL - Imaging and Cardiology EKG: image reviewed Echo: report reviewed (04/29/18: EF 50-55%, mild to moderate TR, trace MR, RVSP 55mmHg) - Telemetry EKG Rhythm: Sinus Tachycardia
--- NOTE | 2018-04-30 12:05 | Consultation ---
History of Present Illness Consult date: 04/30/18 Requesting physician: FLAVIO CALIX Reason for consult: abnormal CXR/CT History of present illness: 72 y/o female, who speaks no South African, from [place] but has lived [place] the [place] 8 [place], admitted with shortness of breath. found to have bilateral pleural effusions and a CTA was done which was negative for PE but showed some upper lobe ground glass opacities. Pulmonary consulted secondary to the GGO's. Per the daughter, patient feels better with the IV lasix therapy and is asking when she can go home. Patient has never had swelling like this before, nor has she ever had pleural effusions. Echo done showed preserved EF with pulmonary hypertension. Per the daughter, non smoker and no sick contacts. Remainder is negative. Past History Past Medical History: anemia, diabetes, hypertension. denies: acute TX, atrial fib, arrhythmia, arthritis, CAD, cancer, COPD, dialysis, DVT, ESRD, GERD, heart failure, hepatitis, HIV/AIDS, hyperthyroidism, hyperlipidemia, hypothyroidism, liver disease, migraines, pulmonary embolism, renal failure, seizures, stroke, sarcoidosis Past Surgical History: No surgical history, Other (no past surgical history but limited secondary to translation.) Social history: single, lives with family, full code. denies: smoking, alcohol abuse, prescription drug abuse, IV drug use Family history: diabetes, hypertension Medications and Allergies Allergies Allergy/AdvReac Type Severity Reaction Status Date / Time No Known Allergies Allergy Unverified 04/28/18 09:19 Home Medications Medication Instructions Recorded Confirmed Last Taken Type Diclofenac Dr [Jaden Wiley] 75 mg PO BID 04/28/18 04/28/18 Unknown History Fluconazole [Diflucan TAB] 100 mg PO DAILY 04/28/18 04/28/18 Unknown History Furosemide [Lasix TAB] 20 mg PO DAILY 04/28/18 04/28/18 Unknown History Linaclotide [Linzess] 145 mcg PO DAILY 04/28/18 04/28/18 Unknown History Lisinopril [Zestril TAB] 40 mg PO DAILY 04/28/18 04/28/18 Unknown History Potassium Chloride 10 meq PO DAILY 04/28/18 04/28/18 Unknown History Sitagliptin Phosphate [Januvia] 50 mg PO DAILY 04/28/18 04/28/18 Unknown History amLODIPine [Norvasc] 10 mg PO DAILY 04/28/18 04/28/18 Unknown History metFORMIN [Glucophage] 1,000 mg PO BID 04/28/18 04/28/18 Unknown History Active Meds: Active Medications Acetaminophen (Tylenol) 650 mg PO Q4H PRN PRN Reason: Pain MILD(1-3)/Fever >100.5/MARINA Last Admin: 04/29/18 14:24 Dose: 650 mg Albuterol (Proventil) 2.5 mg IH Q4H PRN PRN Reason: Shortness Of Breath Carvedilol (Coreg) 3.125 mg PO BID [facility] Last Admin: 04/30/18 09:22 Dose: 3.125 mg Dextrose (D50w (25gm) Syringe) 50 ml IV PRN PRN PRN Reason: Hypoglycemia Enoxaparin Sodium (Lovenox) 40 mg SUB-Q QDAY@1000 [facility] Last Admin: 04/30/18 09:23 Dose: 40 mg Famotidine (Pepcid) 20 mg PO BID [facility] Fluconazole (Diflucan) 100 mg PO DAILY [facility] Last Admin: 04/30/18 09:23 Dose: 100 mg Furosemide (Lasix) 40 mg IV 0600,1800 [facility] Last Admin: 04/30/18 05:41 Dose: 40 mg Hydralazine HCl (Apresoline) 5 mg IV Q6H PRN PRN Reason: Hypertension Insulin Human Lispro (Humalog) 0 unit SUB-Q [facility]; Protocol Last Admin: 04/30/18 09:24 Dose: 2 unit Levofloxacin (Levaquin) 500 mg PO Q24HR [facility] Linagliptin (Tradjenta) 5 mg PO QDAY [facility] Last Admin: 04/30/18 09:23 Dose: 5 mg Lisinopril (Zestril) 40 mg PO DAILY [facility] Last Admin: 04/30/18 09:23 Dose: 40 mg Methylprednisolone Sodium Succinate (Solu-Medrol) 40 mg IV Q12HR [facility] Last Admin: 04/30/18 09:23 Dose: 40 mg Naloxone HCl (Narcan 0.4 Mg/1 Ml) 0.1 mg IV Q2MIN PRN PRN Reason: Res Rate </= 8 or 02 SAT < 92% Ondansetron HCl (Zofran) 4 mg IV Q8H PRN PRN Reason: Nausea And Vomiting Oxycodone/Acetaminophen (Percocet 5/325) 1 tab PO Q6H PRN PRN Reason: Pain, Moderate (4-6) Last Admin: 04/28/18 18:10 Dose: 1 tab Sodium Chloride (Sodium Chloride Flush Syringe 10 Ml) 10 ml IV BID [facility] Last Admin: 04/30/18 10:26 Dose: 10 ml Sodium Chloride (Sodium Chloride Flush Syringe 10 Ml) 10 ml IV PRN PRN PRN Reason: LINE FLUSH Review of Systems All systems: negative Physical Examination Vital signs: Vital Signs Pulse Resp BP Pulse Ox 106 H 22 121/61 70 L 04/28/18 07:00 04/28/18 07:00 04/28/18 07:00 04/28/18 07:00 General appearance: no acute distress, asleep Eyes: non-icteric ENT: oropharynx moist Neck: supple Effort: normal Ascultation: Bilateral: diminished breath sounds (especially at bases), rales ( bases) Percussion: Bilateral: dull (bases) Cardiovascular: regular rate and rhythm Gastrointestinal: normoactive bowel sounds, soft, non-tender Extremities: no edema, pink and warm, edema (trace, per daughter this has improved) Results - Laboratory Findings CBC and BMP: 04/29/18 05:34 04/30/18 05:40 ABG POC ABG pH 7.346 (7.35-7.45) L 04/28/18 09:40 POC ABG pCO2 43.8 (35-45) 04/28/18 09:40 POC ABG pO2 68 (80-105) L 04/28/18 09:40 POC ABG HCO3 23.9 04/28/18 09:40 POC ABG Total CO2 25 04/28/18 09:40 POC ABG O2 Sat 92 04/28/18 09:40 PT/INR, D-dimer PT 14.5 Sec. (12.2-14.9) 04/28/18 07:48 INR 1.07 (0.87-1.13) 04/28/18 07:48 D-Dimer 1370.91 ng/mlDDU (0-234) H 04/28/18 07:48 Abnormal lab findings: Abnormal Labs 04/28/18 04/28/18 04/28/18 07:48 07:48 07:48 RBC 2.95 L Hgb 8.2 L Hct 25.6 L RDW 19.2 H Lymph % (Auto) [place] % (Auto) D-Dimer POC ABG pH POC ABG pO2 Potassium 5.1 H Carbon Dioxide 20 L BUN Glucose 173 H POC Glucose Hemoglobin A1c Albumin 3.6 L 04/28/18 04/28/18 04/28/18 07:48 07:48 09:40 RBC Hgb Hct RDW Lymph % (Auto) [place] % (Auto) D-Dimer 1370.91 H POC ABG pH 7.346 L POC ABG pO2 68 L Potassium Carbon Dioxide BUN Glucose POC Glucose Hemoglobin A1c 8.6 H Albumin 04/28/18 04/28/18 04/28/18 12:20 17:05 21:17 RBC Hgb Hct RDW Lymph % (Auto) [place] % (Auto) D-Dimer POC ABG pH POC ABG pO2 Potassium Carbon Dioxide BUN Glucose POC Glucose 164 H 226 H 122 H Hemoglobin A1c Albumin 04/29/18 04/29/18 04/29/18 05:34 05:34 07:09 RBC 3.02 L Hgb 8.3 L Hct 25.3 L RDW 18.3 H Lymph % (Auto) 39.7 H [place] % (Auto) 8.1 H D-Dimer POC ABG pH POC ABG pO2 Potassium Carbon Dioxide BUN Glucose 109 H POC Glucose 120 H Hemoglobin A1c Albumin 04/29/18 04/29/18 04/30/18 12:16 17:20 00:02 RBC Hgb Hct RDW Lymph % (Auto) [place] % (Auto) D-Dimer POC ABG pH POC ABG pO2 Potassium Carbon Dioxide BUN Glucose POC Glucose 225 H 111 H 302 H Hemoglobin A1c Albumin 04/30/18 04/30/18 05:40 06:18 RBC Hgb Hct RDW Lymph % (Auto) [place] % (Auto) D-Dimer POC ABG pH POC ABG pO2 Potassium 5.4 H Carbon Dioxide BUN 20 H Glucose 189 H POC Glucose 230 H Hemoglobin A1c Albumin - Diagnostic Findings Chest x-ray: image reviewed CT scan - chest: image reviewed Assessment and Plan 72 y/o female with upper lobe GGO's and bilateral pleural effusions with compressive atelectasis 1. Agree with IV diuresis, especially given evidence of pulmonary hypertension. 2. Will need full work up including outpatient PFT's, V/Q scan once effusions resolve and SERJIO panel (connective Tissue disease work up) 3. Would also benefit from right heart cath at some point. This could be done as an outpatient once euvolemia is achieved 4. Ok with current abx regimen for GGO's although likely nonspecific and coincidental findings. 5. If no improvement with diuretics, may need thoracentesis. Also need to asses for oxygen prior to discharge. 6. Will also stop steroids. Thank you for this consult, will continue to follow along with you.
--- NOTE | 2018-04-30 16:16 | Progress Note ---
Assessment and Plan Assessment and plan: Patient is a 72 yo woman who speaks no Kiswahili, from [facility] and she speaks Creole but has [place] the [place], admitted with shortness of breath. She was found to have bilateral pleural effusions and a CTA was done to rule out for PE (which was negative) but did show upper lobe ground glass opacities. Pulmonary consulted secondary to the GGO's. Per the daughter, patient feels better with the IV lasix therapy and is asking when she can go home. Patient has never had swelling like this before, nor has she ever had pleural effusions. Echo done showed preserved EF with pulmonary hypertension. Per the daughter, non smoker and no sick contacts. Remainder is negative. -Acute hypoxic respiratory failure: trying to wean off 3 liters of o2 which is new -Acute suspected aspiration bilateral pneumonia, poa: continue ABX -Bilateral pleural effusion, right > left: Pulmonology is following, may need thoracentesis -GGO: per Pulmonology -Pulmonary hypertension: Pulmonology is following -Type 2 DM uncontrolled due to iv steroids: ada diet, add ssi, stop steroids per Pulm -Hyperkalemia: treat Kayexalate, repeat bmp History Interval history: Patient was seen and examined. Follow-up on current diagnosis of sob, improved but still on 3 liters of O2, new. Overnight uneventful. Patient denies any chest pain, shortness breath, nausea/vomiting or severe headaches. Imaging, nursing note, chart, labs and old chart reviewed. Discussed with patient. Daughter Margarette was Creole pullboat engineer. Hospitalist Physical - Physical exam Narrative exam: GEN: WDWN, NAD, Awake, Alert, Orientated x 3 HEENT: NCAT, EOMI, PERRL, OP Clear NECK: supple, no adenopathy, no thyromegaly, no JVD CVS/HEART: RRR, normal S1S2, pulses present bilaterally CHEST/LUNGS: diminished bs bases with crackles, Symmetrical chest expansion, good air entry bilaterally GI/Abdomen: soft, NTND, good bowel sounds, no guarding or rebound /Bladder: no suprapubic tenderness, no CVA or paraspinal tenderness EXT/Skin: no obvious rash MSK: FROM x 4 Neuro: CN 2-12 grossly intact, no new focal deficits Psych: calm - Constitutional Vitals: Temp Pulse Resp BP Pulse Ox 98.6 F 109 H 18 132/70 94 04/30/18 00:55 04/30/18 09:23 04/30/18 10:00 04/30/18 09:23 04/30/18 10:00 General appearance: Present: no acute distress, well-nourished Results - Labs CBC & Chem 7: 04/29/18 05:34 04/30/18 05:40 Labs: Laboratory Last Values WBC 4.5 K/mm3 (4.5-11.0) 04/29/18 05:34 RBC 3.02 M/mm3 (3.65-5.03) L 04/29/18 05:34 Hgb 8.3 gm/dl (10.1-14.3) L 04/29/18 05:34 Hct 25.3 % (30.3-42.9) L 04/29/18 05:34 MCV 84 fl (79-97) 04/29/18 05:34 MCH 28 pg (28-32) 04/29/18 05:34 MCHC 33 % (30-34) 04/29/18 05:34 RDW 18.3 % (13.2-15.2) H 04/29/18 05:34 Plt Count 331 K/mm3 (140-440) 04/29/18 05:34 Lymph % (Auto) 39.7 % (13.4-35.0) H 04/29/18 05:34 [place] % (Auto) 8.1 % (0.0-7.3) H 04/29/18 05:34 Eos % (Auto) 2.6 % (0.0-4.3) 04/29/18 05:34 Baso % (Auto) 0.2 % (0.0-1.8) 04/29/18 05:34 Lymph # 1.8 K/mm3 (1.2-5.4) 04/29/18 05:34 [place] # 0.4 K/mm3 (0.0-0.8) 04/29/18 05:34 Eos # 0.1 K/mm3 (0.0-0.4) 04/29/18 05:34 Baso # 0.0 K/mm3 (0.0-0.1) 04/29/18 05:34 Seg Neutrophils % 49.4 % (40.0-70.0) 04/29/18 05:34 Seg Neutrophils # 2.2 K/mm3 (1.8-7.7) 04/29/18 05:34 PT 14.5 Sec. (12.2-14.9) 04/28/18 07:48 INR 1.07 (0.87-1.13) 04/28/18 07:48 APTT 27.1 Sec. (24.2-36.6) 04/28/18 07:48 D-Dimer 1370.91 ng/mlDDU (0-234) H 04/28/18 07:48 POC ABG pH 7.346 (7.35-7.45) L 04/28/18 09:40 POC ABG pCO2 43.8 (35-45) 04/28/18 09:40 POC ABG pO2 68 (80-105) L 04/28/18 09:40 POC ABG HCO3 23.9 04/28/18 09:40 POC ABG Total CO2 25 04/28/18 09:40 POC ABG O2 Sat 92 04/28/18 09:40 POC ABG Base Excess -2 04/28/18 09:40 FiO2 63 % 04/28/18 09:40 Sodium 138 mmol/L (137-145) 04/30/18 05:40 Potassium 5.4 mmol/L (3.6-5.0) H 04/30/18 05:40 Chloride 98.0 mmol/L (98-107) 04/30/18 05:40 Carbon Dioxide 24 mmol/L (22-30) 04/30/18 05:40 Anion Gap 21 mmol/L 04/30/18 05:40 BUN 20 mg/dL (7-17) H 04/30/18 05:40 Creatinine 1.2 mg/dL (0.7-1.2) 04/30/18 05:40 Estimated GFR 53 ml/min 04/30/18 05:40 BUN/Creatinine Ratio 17 % 04/30/18 05:40 Glucose 189 mg/dL (65-100) H 04/30/18 05:40 POC Glucose 340 (70-105) H 04/30/18 11:52 Hemoglobin A1c 8.6 % (4-6) H 04/28/18 07:48 Lactic Acid 0.80 mmol/L (0.7-2.0) 04/28/18 07:48 Calcium 9.1 mg/dL (8.4-10.2) 04/30/18 05:40 Magnesium 2.00 mg/dL (1.7-2.3) 04/28/18 07:48 Total Bilirubin 0.20 mg/dL (0.1-1.2) 04/28/18 07:48 Direct Bilirubin < 0.2 mg/dL (0-0.2) 04/28/18 07:48 Indirect Bilirubin 0.0 mg/dL 04/28/18 07:48 AST 17 units/L (5-40) 04/28/18 07:48 ALT 8 units/L (7-56) 04/28/18 07:48 Alkaline Phosphatase 61 units/L (35-129) 04/28/18 07:48 Total Creatine Kinase 91 units/L (30-135) 04/28/18 07:48 CK-MB (CK-2) 3.3 ng/mL (0.0-4.0) 04/28/18 07:48 CK-MB (CK-2) Rel Index 3.6 (0-4) 04/28/18 07:48 Troponin T < 0.010 ng/mL (0.00-0.029) 04/28/18 07:48 NT-Pro-B Natriuret Pep 852.1 pg/mL (0-900) 04/28/18 07:48 Total Protein 7.3 g/dL (6.3-8.2) 04/28/18 07:48 Albumin 3.6 g/dL (3.9-5) L 04/28/18 07:48 Albumin/Globulin Ratio 1.0 % 04/28/18 07:48 Triglycerides 135 mg/dL (2-149) 04/28/18 07:48 Cholesterol 169 mg/dL (50-199) 04/28/18 07:48 LDL Cholesterol Direct 102 mg/dL (50-130) 04/28/18 07:48 HDL Cholesterol 53 mg/dL (40-59) 04/28/18 07:48 Cholesterol/HDL Ratio 3.18 % 04/28/18 07:48 Urine Color Yellow (Yellow) 04/28/18 11:10 Urine Turbidity Hazy (Clear) 04/28/18 11:10 Urine pH 5.0 (5.0-7.0) 04/28/18 11:10 Ur Specific [place] 1.017 (1.003-1.030) 04/28/18 11:10 Urine Protein 30 mg/dl mg/dL (Negative) 04/28/18 11:10 Urine Glucose (UA) 50 mg/dL (Negative) 04/28/18 11:10 Urine Ketones Tr mg/dL (Negative) 04/28/18 11:10 Urine Blood Neg (Negative) 04/28/18 11:10 Urine Nitrite Neg (Negative) 04/28/18 11:10 Urine Bilirubin Neg (Negative) 04/28/18 11:10 Urine Urobilinogen < 2.0 mg/dL (<2.0) 04/28/18 11:10 Ur Leukocyte Esterase Neg (Negative) 04/28/18 11:10 Urine WBC (Auto) 1.0 /HPF (0.0-6.0) 04/28/18 11:10 Urine RBC (Auto) 2.0 /HPF (0.0-6.0) 04/28/18 11:10 U Epithel Cells (Auto) < 1.0 /HPF (0-13.0) 04/28/18 11:10 Urine Bacteria (Auto) 2+ /HPF (Negative) 04/28/18 11:10 Hyaline Casts 4 /LPF 04/28/18 11:10 Granular Casts 3 /LPF 04/28/18 11:10 Urine Mucus Few /HPF 04/28/18 11:10 Blood Type O POSITIVE 04/28/18 07:48 Antibody Screen Negative 04/28/18 07:48
[2018-04-30] MEDS ORDERED: KIONEX PO ONE (17:20)
[2018-04-30] MEDS ORDERED: LOPRESSOR PO SCH (22:00)
[2018-04-30] MEDS: PEPCID PO SCH (22:35)
[2018-05-01 06:13] LABS: Hematocrit 27.2 % (30.3-42.9); Hemoglobin 8.9 gm/dl (10.1-14.3); Mean Corpuscular HGB Conc 33 % (30-34); Mean Corpuscular Hemoglobin 27 pg (28-32); Mean Corpuscular Volume 84 fl (79-97); Platelet Count 337 K/mm3 (140-440); Red Blood Count 3.25 M/mm3 (3.65-5.03); Red Cell Distribution Width 18.2 % (13.2-15.2)
[2018-05-01 06:37] LABS: Calcium 9.7 mg/dL (8.4-10.2)
[2018-05-01] MEDS ORDERED: LOPRESSOR PO SCH (10:00)
[2018-05-01] MEDS ORDERED: LEVAQUIN PO SCH (10:00)
[2018-05-01] MEDS ORDERED: LASIX PO SCH (10:00)
--- NOTE | 2018-05-01 10:27 | Progress Note ---
Assessment and Plan Increase metoprolol to 50mg BID. Obtain CXR and BMP in am. The patient has been seen in conjunction with Dr. Frias who agrees with the assessment and plan of care. - Patient Problems (1) Acute diastolic HF (heart failure) Current Visit: Yes Status: Acute (2) Pleural effusion, bilateral Current Visit: Yes Status: Acute (3) Hypertension Current Visit: Yes Status: Chronic (4) Diabetes Current Visit: Yes Status: Chronic (5) Anemia Current Visit: Yes Status: Acute Subjective Date of service: 05/01/18 Principal diagnosis: acute diastolic heart failure Interval history: The patient is resting in bed. No acute distress noted. Sinus rhythm on the monitor. Objective Last Vital Signs Temp 99.1 F 05/01/18 08:01 Pulse 87 05/01/18 08:01 Resp 20 05/01/18 08:01 BP 132/65 05/01/18 08:01 Pulse Ox 99 05/01/18 10:00 - Physical Examination General: No Apparent Distress HEENT: Positive: Normocephaly, Mucus Membranes Moist Neck: Positive: neck supple, trachea midline Cardiac: Positive: Reg Rate and Rhythm, S1/S2 Lungs: Positive: clear to auscultation Neuro: Positive: Grossly Intact Abdomen: Positive: Soft, Active Bowel Sounds. Negative: Tender Skin: Positive: Clear. Negative: Rash Extremities: Present: edema (trace-bilateral lower legs) - Labs and Meds CBC 05/01/18 Range/Units 05:35 WBC 5.0 (4.5-11.0) K/mm3 RBC 3.25 L (3.65-5.03) M/mm3 Hgb 8.9 L (10.1-14.3) gm/dl Hct 27.2 L (30.3-42.9) % Plt Count 337 (140-440) K/mm3 Comprehensive Metabolic Panel 05/01/18 Range/Units 05:35 Sodium 136 L (137-145) mmol/L Potassium 4.3 D (3.6-5.0) mmol/L Chloride 97.8 L (98-107) mmol/L Carbon Dioxide 26 (22-30) mmol/L BUN 29 H (7-17) mg/dL Creatinine 1.1 (0.7-1.2) mg/dL Glucose 202 H (65-100) mg/dL Calcium 9.7 (8.4-10.2) mg/dL - Imaging and Cardiology EKG: image reviewed Echo: report reviewed (04/29/18: EF 50-55%, mild to moderate TR, trace MR, RVSP 55mmHg) - Telemetry EKG Rhythm: Sinus Rhythm
[2018-05-01] MEDS: LOVENOX SUB-Q SCH (11:06)
[2018-05-01] MEDS: PEPCID PO SCH (11:07)
[2018-05-01] MEDS: ZESTRIL PO SCH (11:07)
[2018-05-01] MEDS: DIFLUCAN PO SCH (11:08)
[2018-05-01] MEDS: HumaLOG SUB-Q SCH ×3 (11:08→18:01)
--- NOTE | 2018-05-01 14:57 | Discharge Summary ---
Providers - Providers Date of Admission: 04/28/18 09:13 Date of discharge: 05/01/18 Attending physician: LISA CLINE 04/28/18 10:00 Consult to Physician [CONS] Routine Comment: Consulting Provider: CARLO PITTMAN Physician Instructions: Reason For Exam: chf Consult to Physician [CONS] Routine Comment: Consulting Provider: CARLO PITTMAN Physician Instructions: Reason For Exam: chf 04/29/18 21:18 Consult to Physician [CONS] Routine Comment: Consulting Provider: STEPHANIE CLEARY Physician Instructions: Reason For Exam: sarai Pleual effusion Primary care physician: VELVET CUTTER Hospitalization Condition: Stable Hospital course: Patient is a 72 yo woman who speaks no Urdu, from [facility] and she speaks Creole but has lived [place] the [place], admitted with shortness of breath. She was found to have bilateral pleural effusions and a CTA was done to rule out for PE (which was negative) but did show upper lobe ground glass opacities. Pulmonary consulted secondary to the GGO's. Per the daughter, patient feels better with the IV lasix therapy and is asking when she can go home. Patient has never had swelling like this before, nor has she ever had pleural effusions. Echo done showed preserved EF with pulmonary hypertension. Per the daughter, non smoker and no sick contacts. Remainder is negative. -Acute hypoxic respiratory failure: trying to wean off 2 liters of O2, it was 98 % on room air -Acute suspected aspiration bilateral pneumonia, poa: continue ABX x [address] Cleary -Bilateral pleural effusion, right > left: d/w Medical Director Occupational Health, Dr. Cleary at bedside, no need for thoracentesis -GGO (ground glass opacities): per Pulmonology -Pulmonary hypertension: Pulmonology is following -Anemia appears chronic -Acute diastolic dysfunction improved. -Type 2 DM uncontrolled due to iv steroids: ada diet, add ssi, stop steroids per Pulm -Hyperkalemia: treat Kayexalate, repeat bmp Discharge once home o2 assessment done ok to discharge per Dr. Cleary Disposition: DC-01 TO HOME OR SELFCARE Time spent for discharge: 33 minutes Core Measure Documentation - Palliative Care Palliative Care/ Comfort Measures: Not Applicable - Core Measures Any of the following diagnoses?: heart failure - VTE Discharge Requirements Deep Vein Thrombosis/Pulmonary Embolism Present on Admission: No Has pt received <5 days of overlap therapy or INR<2.0: No Anticoagulant overlap therapy prescribed at discharge: No Contraindication No Overlap Therapy order at DC: Not Indicated - Heart Failure Discharge Requirements EDDIE/ARB for LVSD if EF <40%: Yes Beta corine at discharge: Yes Exam - Physical Exam Narrative exam: GEN: WDWN, NAD, Awake, Alert, Orientated x 3, daughter Margarette at bedside was the Creole Interrupter HEENT: NCAT, EOMI, PERRL, OP Clear NECK: supple, no adenopathy, no thyromegaly, no JVD CVS/HEART: RRR, normal S1S2, pulses present bilaterally CHEST/LUNGS: diminished bs bases with crackles improved, Symmetrical chest expansion, good air entry bilaterally GI/Abdomen: soft, NTND, good bowel sounds, no guarding or rebound /Bladder: no suprapubic tenderness, no CVA or paraspinal tenderness EXT/Skin: no obvious rash MSK: FROM x 4 Neuro: CN 2-12 grossly intact, no new focal deficits Psych: calm - Constitutional Vitals: Temp Pulse Resp BP Pulse Ox 99.1 F 88 20 132/65 99 05/01/18 08:01 05/01/18 11:06 05/01/18 08:01 05/01/18 11:06 05/01/18 10:00 Plan Activity: other (no strenous activity unless cleared by PCP) Diet: low salt Additional Instructions: You will need a sleep study, right heart catherization with Dr. Vincent. Repeat renal function in 2-3 days with PCP Follow up with: PRIMARY MD CARRILLO [Primary Care Provider] - 3-5 Days BETI VINCENT MD [Staff Physician] - 7 Days NYA FIGUEROA MD [Staff Physician] - 7 Days Prescriptions: ALBUTEROL NEB's [Proventil 0.083% NEBS] 2.5 mg IH Q4H PRN #30 nebu PRN Reason: Shortness Of Breath Furosemide [Lasix TAB] 40 mg PO QDAY #30 tablet levoFLOXacin [Levaquin TAB] 500 mg PO Q24HR #5 tablet Lisinopril [Zestril TAB] 40 mg PO DAILY #30 tablet Metoprolol [Lopressor TAB] 50 mg PO BID #60 tablet
--- NOTE | 2018-05-01 15:00 | Progress Note ---
Assessment and Plan 72 y/o female with upper lobe GGO's and bilateral pleural effusions with compressive atelectasis 1. Agree with switch to oral diuretic 2. Will need full work up including outpatient PFT's, V/Q scan once effusions resolve and SERJIO panel (connective Tissue disease work up) 3. Would also benefit from right heart cath at some point. This could be done as an outpatient once euvolemia is achieved 4. Ok with current abx regimen for GGO's although likely nonspecific and coincidental findings. Would only treat for total of 5 days. Does not need repeat CXR unless clinically, she changes. 5. Assess ambulating O2 needs. 6. From a lung standpoint, no objection to discharge. Thank you for this consult, will continue to follow along with you. Subjective Date of service: 05/01/18 Principal diagnosis: acute diastolic heart failure Interval history: Daughter at bedside and per her, patient feels much better and wants to go home. Took oxygen off in room and O2 sats at rest were in the high 90's. No distress noted. Objective Vital Signs - 12hr 05/01/18 05/01/18 05/01/18 04:27 08:01 10:00 Temperature 98.0 F 99.1 F Pulse Rate 81 87 Respiratory 17 20 Rate Blood Pressure 115/54 132/65 O2 Sat by Pulse 99 99 99 Oximetry 05/01/18 11:06 Temperature Pulse Rate 88 Respiratory Rate Blood Pressure 132/65 O2 Sat by Pulse Oximetry Constitutional: no acute distress, asleep Eyes: non-icteric ENT: oropharynx moist Neck: supple Effort: normal Ascultation: Bilateral: diminished breath sounds (especially at bases), rales ( bases) Percussion: Bilateral: dull (bases) Cardiovascular: regular rate and rhythm Gastrointestinal: normoactive bowel sounds, soft, non-tender Extremities: no edema, pink and warm, edema (trace, per daughter this has improved) CBC and BMP: 05/01/18 05:35 05/01/18 05:35 ABG, PT/INR, D-dimer: ABG POC ABG pH 7.346 (7.35-7.45) L 04/28/18 09:40 POC ABG pCO2 43.8 (35-45) 04/28/18 09:40 POC ABG pO2 68 (80-105) L 04/28/18 09:40 POC ABG HCO3 23.9 04/28/18 09:40 POC ABG Total CO2 25 04/28/18 09:40 POC ABG O2 Sat 92 04/28/18 09:40 PT/INR, D-dimer PT 14.5 Sec. (12.2-14.9) 04/28/18 07:48 INR 1.07 (0.87-1.13) 04/28/18 07:48 D-Dimer 1370.91 ng/mlDDU (0-234) H 04/28/18 07:48 Abnormal lab findings: Abnormal Labs 04/28/18 04/28/18 04/28/18 07:48 07:48 07:48 RBC 2.95 L Hgb 8.2 L Hct 25.6 L MCH RDW 19.2 H Lymph % (Auto) [place] % (Auto) D-Dimer POC ABG pH POC ABG pO2 Sodium Potassium 5.1 H Chloride Carbon Dioxide 20 L BUN Glucose 173 H POC Glucose Hemoglobin A1c Albumin 3.6 L 04/28/18 04/28/18 04/28/18 07:48 07:48 09:40 RBC Hgb Hct MCH RDW Lymph % (Auto) [place] % (Auto) D-Dimer 1370.91 H POC ABG pH 7.346 L POC ABG pO2 68 L Sodium Potassium Chloride Carbon Dioxide BUN Glucose POC Glucose Hemoglobin A1c 8.6 H Albumin 04/28/18 04/28/18 04/28/18 12:20 17:05 21:17 RBC Hgb Hct MCH RDW Lymph % (Auto) [place] % (Auto) D-Dimer POC ABG pH POC ABG pO2 Sodium Potassium Chloride Carbon Dioxide BUN Glucose POC Glucose 164 H 226 H 122 H Hemoglobin A1c Albumin 04/29/18 04/29/18 04/29/18 05:34 05:34 07:09 RBC 3.02 L Hgb 8.3 L Hct 25.3 L MCH RDW 18.3 H Lymph % (Auto) 39.7 H [place] % (Auto) 8.1 H D-Dimer POC ABG pH POC ABG pO2 Sodium Potassium Chloride Carbon Dioxide BUN Glucose 109 H POC Glucose 120 H Hemoglobin A1c Albumin 04/29/18 04/29/18 04/30/18 12:16 17:20 00:02 RBC Hgb Hct MCH RDW Lymph % (Auto) [place] % (Auto) D-Dimer POC ABG pH POC ABG pO2 Sodium Potassium Chloride Carbon Dioxide BUN Glucose POC Glucose 225 H 111 H 302 H Hemoglobin A1c Albumin 04/30/18 04/30/18 04/30/18 05:40 06:18 11:52 RBC Hgb Hct MCH RDW Lymph % (Auto) [place] % (Auto) D-Dimer POC ABG pH POC ABG pO2 Sodium Potassium 5.4 H Chloride Carbon Dioxide BUN 20 H Glucose 189 H POC Glucose 230 H 340 H Hemoglobin A1c Albumin 04/30/18 04/30/18 05/01/18 16:46 20:35 05:14 RBC Hgb Hct MCH RDW Lymph % (Auto) [place] % (Auto) D-Dimer POC ABG pH POC ABG pO2 Sodium Potassium Chloride Carbon Dioxide BUN Glucose POC Glucose 282 H 345 H 217 H Hemoglobin A1c Albumin 05/01/18 05/01/18 05:35 05:35 RBC 3.25 L Hgb 8.9 L Hct 27.2 L MCH 27 L RDW 18.2 H Lymph % (Auto) [place] % (Auto) D-Dimer POC ABG pH POC ABG pO2 Sodium 136 L Potassium Chloride 97.8 L Carbon Dioxide BUN 29 H Glucose 202 H POC Glucose Hemoglobin A1c Albumin
[2018-05-01] MEDS: SODIUM CHLORIDE FLUSH SYRINGE 10 ML IV SCH (18:02)
[2018-05-01 18:15] VITALS: BP 121/61
== END 2018-05-01 18:10 | disposition home or self-care (01) | DRG 177 ==
LOC: ED 06:50 → 4A 09:13
PROVIDERS: ADMIT Internal Medicine; ATTEND Internal Medicine
PROC: 4A033R1 Measurement of Arterial Saturation, Peripheral, Percutaneous Approach (ICD-10-PCS; principal; 2018-04-28)
DX: J69.0 Pneumonitis due to inhalation of food and vomit (principal); J96.01 Acute respiratory failure with hypoxia; I50.31 Acute diastolic (congestive) heart failure; J98.11 Atelectasis; I27.20 Pulmonary hypertension, unspecified; D63.8 Anemia in other chronic diseases classified elsewhere; E09.9 Drug or chemical induced diabetes mellitus without complications; E87.5 Hyperkalemia; I11.0 Hypertensive heart disease with heart failure; T38.0X5A Adverse effect of glucocorticoids and synthetic analogues, initial encounter; Y92.89 Other specified places as the place of occurrence of the external cause; Z82.49 Family history of ischemic heart disease and other diseases of the circulatory system; Z83.3 Family history of diabetes mellitus; Z79.899 Other long term (current) drug therapy
CPT/HCPCS: 36415; 36600; 71045; 71275; 80048; 80061; 80074; 81001; 82140; 82550; 82553; 82803; 82962; 83036; 83735; 83880; 84484; 85025; 85027; 85379; 85610; 85730; 86850; 86900; 86901; 87040; 87086; 93005; 93010; 93306; 94760; 96372; 96374; J1650; J1815; J1940; J1956; J2920; Q9967

== ENCOUNTER 2019-02-09 13:17 | Emergency (ER) | payer MEDICARE ==
--- NOTE | 2019-02-09 13:27 | Emergency Department Report ---
Chief Complaint: Weakness Stated Complaint: DIABETIC/HBP Time Seen by Provider: 02/09/19 13:22 - HPI History of Present Illness: This is a 73 y.o. Female that presents to the ER with increasing weakness for 3 days. PMH of DM2, anemia, HTN, CHF, and PE PCP Marta Goss Patient reports SOB with exertion. - Exam Vital Signs: Vital Signs 02/09/19 13:25 Temperature 97.9 F Pulse Rate 126 H Respiratory 18 Rate Blood Pressure 165/93 O2 Sat by Pulse 99 Oximetry MSE screening note: Focused history and physical exam performed. Due to findings the following was ordered: POC Glucose 280. Labs and EKG ED Disposition for MSE Condition: Stable
[2019-02-09] MEDS ORDERED: NACL 0.9% 1000 ML 1,000 ML IV ONE (14:22)
[2019-02-09] MEDS ORDERED: NORMODYNE IV ONE (14:22)
[2019-02-09 14:41] LABS: Basophils % (Auto) 0.2 % (0.0-1.8); Eosinophils # (Auto) 0.1 K/mm3 (0.0-0.4); Hematocrit 33.3 % (30.3-42.9); Hemoglobin 10.8 gm/dl (10.1-14.3); Lymphocytes # (Auto) 2.1 K/mm3 (1.2-5.4); Lymphocytes % (Auto) 45.9 % (13.4-35.0); Mean Corpuscular HGB Conc 33 % (30-34); Mean Corpuscular Volume 85 fl (79-97); Monocytes # (Auto) 0.3 K/mm3 (0.0-0.8); Monocytes % (Auto) 7.2 % (0.0-7.3); Platelet Count 284 K/mm3 (140-440); Red Blood Count 3.94 M/mm3 (3.65-5.03); Red Cell Distribution Width 16.1 % (13.2-15.2)
[2019-02-09 14:54] VITALS: BP 153/84
[2019-02-09 15:11] LABS: Alanine Aminotransferase 5 units/L (7-56); Albumin 4.3 g/dL (3.9-5); BUN/Creatinine Ratio 16; Blood Urea Nitrogen 14 mg/dL (7-17); Calcium 9.1 mg/dL (8.4-10.2); Hemolysis Index 0
[2019-02-09] MEDS ORDERED: NACL 0.9% 500 ML 500 ML IV ONE (15:16)
--- NOTE | 2019-02-09 15:53 | Emergency Department Report ---
ED General Adult HPI - General Chief complaint: Weakness Stated complaint: DIABETIC/HBP Time Seen by Provider: 02/09/19 13:22 Source: patient Mode of arrival: Ambulatory Limitations: Language Barrier - History of Present Illness Initial comments: Patient is a 73-year-old [place] female who is presenting with some dizziness for the past 3 days. Patient states she just feels generally weak. Patient denies any chest pain she said breath nausea vomiting diarrhea at this time. Patient has run out of her medications for diabetes and hypertension. - Related Data Previous Rx's Medication Instructions Recorded Last Taken Type ALBUTEROL NEB's [Proventil 0.083% 2.5 mg IH Q4H PRN #30 nebu 05/01/18 Unknown Rx NEBS] Acetaminophen [Acetaminophen TAB] 650 mg PO Q4H PRN #20 tablet 05/01/18 Unknown Rx Famotidine [Pepcid] 20 mg PO BID #10 tablet 05/01/18 Unknown Rx Furosemide [Lasix TAB] 40 mg PO QDAY #30 tablet 05/01/18 Unknown Rx Potassium Chloride 10 meq PO DAILY #30 05/01/18 Unknown Rx levoFLOXacin [Levaquin TAB] 500 mg PO Q24HR #5 tablet 05/01/18 Unknown Rx Clopidogrel [Plavix] 75 mg PO QDAY #30 tablet 02/09/19 Unknown Rx Lisinopril [Zestril TAB] 40 mg PO DAILY #30 tablet 02/09/19 Unknown Rx Metoprolol [Lopressor TAB] 50 mg PO BID #60 tablet 02/09/19 Unknown Rx amLODIPine [Norvasc] 10 mg PO DAILY #30 tab 02/09/19 Unknown Rx glipiZIDE XL [Glucotrol Xl] 10 mg PO QAM #30 tab.er.24 02/09/19 Unknown Rx metFORMIN [Glucophage] 1,000 mg PO BID 30 Days #60 tablet 02/09/19 Unknown Rx Allergies Allergy/AdvReac Type Severity Reaction Status Date / Time No Known Allergies Allergy Unverified 04/28/18 09:19 ED Review of Systems ROS: Stated complaint: DIABETIC/HBP Other details as noted in HPI Comment: All other systems reviewed and negative ED Past Medical Hx - Past Medical History Previous Medical History?: Yes Hx Hypertension: Yes Hx Diabetes: Yes - Surgical History Past Surgical History?: No - Social History Smoking Status: Never Smoker Substance Use Type: None - Medications Home Medications: Home Medications Medication Instructions Recorded Confirmed Last Taken Type ALBUTEROL NEB's [Proventil 0.083% 2.5 mg IH Q4H PRN #30 nebu 05/01/18 Unknown Rx NEBS] Acetaminophen [Acetaminophen TAB] 650 mg PO Q4H PRN #20 tablet 05/01/18 Unknown Rx Famotidine [Pepcid] 20 mg PO BID #10 tablet 05/01/18 Unknown Rx Furosemide [Lasix TAB] 40 mg PO QDAY #30 tablet 05/01/18 Unknown Rx Potassium Chloride 10 meq PO DAILY #30 18 04/28/18 Unknown Rx levoFLOXacin [Levaquin TAB] 500 mg PO Q24HR #5 tablet 05/01/18 Unknown Rx Clopidogrel [Plavix] 75 mg PO QDAY #30 tablet 02/09/19 Unknown Rx Lisinopril [Zestril TAB] 40 mg PO DAILY #30 tablet 02/09/19 Unknown Rx Metoprolol [Lopressor TAB] 50 mg PO BID #60 tablet 02/09/19 Unknown Rx amLODIPine [Norvasc] 10 mg PO DAILY #30 tab 02/09/19 Unknown Rx glipiZIDE XL [Glucotrol Xl] 10 mg PO QAM #30 tab.er.24 02/09/19 Unknown Rx metFORMIN [Glucophage] 1,000 mg PO BID 30 Days #60 tablet 02/09/19 Unknown Rx ED Physical Exam - General Limitations: Language Barrier General appearance: alert, in no apparent distress - Head Head exam: Present: atraumatic, normocephalic - Eye Eye exam: Present: normal appearance, PERRL, EOMI - ENT ENT exam: Present: mucous membranes moist - Neck Neck exam: Present: normal inspection - Respiratory Respiratory exam: Present: normal lung sounds bilaterally. Absent: respiratory distress, wheezes, rales, rhonchi - Cardiovascular Cardiovascular Exam: Present: regular rate, normal rhythm. Absent: systolic murmur, diastolic murmur, rubs, gallop - GI/Abdominal GI/Abdominal exam: Present: soft, normal bowel sounds. Absent: distended, tenderness, guarding, rebound - Extremities Exam Extremities exam: Present: normal inspection - Back Exam Back exam: Present: normal inspection - Neurological Exam Neurological exam: Present: alert, oriented X3 - Psychiatric Psychiatric exam: Present: normal affect, normal mood - Skin Skin exam: Present: warm, dry, intact, normal color. Absent: rash ED Course Vital Signs 02/09/19 02/09/19 13:25 14:53 Temperature 97.9 F Pulse Rate 126 H 72 Respiratory 18 Rate Blood Pressure 165/93 153/84 O2 Sat by Pulse 99 Oximetry ED Medical Decision Making - Lab Data Result diagrams: 02/09/19 14:03 02/09/19 14:03 Lab Results 02/09/19 02/09/19 02/09/19 Range/Units 13:29 14:03 14:03 WBC 4.6 (4.5-11.0) K/mm3 RBC 3.94 (3.65-5.03) M/mm3 Hgb 10.8 (10.1-14.3) gm/dl Hct 33.3 (30.3-42.9) % MCV 85 (79-97) fl MCH 28 (28-32) pg MCHC 33 (30-34) % RDW 16.1 H (13.2-15.2) % Plt Count 284 (140-440) K/mm3 Lymph % (Auto) 45.9 H (13.4-35.0) % [place] % (Auto) 7.2 (0.0-7.3) % Eos % (Auto) 2.0 (0.0-4.3) % Baso % (Auto) 0.2 (0.0-1.8) % Lymph # 2.1 (1.2-5.4) K/mm3 [place] # 0.3 (0.0-0.8) K/mm3 Eos # 0.1 (0.0-0.4) K/mm3 Baso # 0.0 (0.0-0.1) K/mm3 Seg Neutrophils % 44.7 (40.0-70.0) % Seg Neutrophils # 2.1 (1.8-7.7) K/mm3 Sodium 133 L (137-145) mmol/L Potassium 4.9 (3.6-5.0) mmol/L Chloride 97.1 L (98-107) mmol/L Carbon Dioxide 23 (22-30) mmol/L Anion Gap 18 mmol/L BUN 14 (7-17) mg/dL Creatinine 0.9 (0.7-1.2) mg/dL Estimated GFR > 60 ml/min BUN/Creatinine Ratio 16 % Glucose 290 H (65-100) mg/dL POC Glucose 280 H (70-105) Calcium 9.1 (8.4-10.2) mg/dL Total Bilirubin 0.20 (0.1-1.2) mg/dL AST 10 (5-40) units/L ALT 5 L (7-56) units/L Alkaline Phosphatase 93 (35-129) units/L Total Protein 7.7 (6.3-8.2) g/dL Albumin 4.3 (3.9-5) g/dL Albumin/Globulin Ratio 1.3 % - EKG Data -: EKG Interpreted by Ks - EKG Data 02/09/19 15:51 EKG shows sinus rhythm rate of 95 mode Y axis normal intervals there is no ST segment elevation or depressions. There is evidence of LVH. - Medical Decision Making On arrival the patient was tachycardic to 126 after walking however while si tting and the rest of her visit the patient had a heart rate in the 90s. Patient's sodium and chloride level are slightly low glucose is high. Patient was given labetalol to control blood pressure since she is on metoprolol at home and the patient also was given 1500 mL of normal saline for hydration. Patient is feeling improved at this time will be discharged home. Her refills of her medications have been given. Critical care attestation.: If time is entered above; I have spent that time in minutes in the direct care of this critically ill patient, excluding procedure time. ED Disposition Clinical Impression: Hyperglycemia, Hypertensive urgency, Dehydration, Medical non-compliance Disposition: DC-01 TO HOME OR SELFCARE Is pt being admited?: No Does the pt Need Aspirin: No Condition: Stable Instructions: Hypertension (ED), Dehydration (ED), Diabetic Hyperglycemia (ED) Prescriptions: metFORMIN [Glucophage] 1,000 mg PO BID 30 Days #60 tablet glipiZIDE XL [Glucotrol Xl] 10 mg PO QAM #30 tab.er.24 Metoprolol [Lopressor TAB] 50 mg PO BID #60 tablet amLODIPine [Norvasc] 10 mg PO DAILY #30 tab Clopidogrel [Plavix] 75 mg PO QDAY #30 tablet Lisinopril [Zestril TAB] 40 mg PO DAILY #30 tablet Referrals: SAURABH ROGERS MD [Primary Care Provider] - 3-5 Days Time of Disposition: 15:58
== END 2019-02-09 17:00 | disposition home or self-care (01) ==
LOC: ED 13:17
DX: I16.0 Hypertensive urgency (principal); E86.0 Dehydration; E11.65 Type 2 diabetes mellitus with hyperglycemia; I10 Essential (primary) hypertension
CPT/HCPCS: 36415; 80053; 82962; 85025; 93005; 93010; 96361; 96374; 99284; J7030; 99283